=== PATIENT | male | born 1940 | race African-American/Black ===

== ENCOUNTER 2016-06-23 15:07 | Inpatient (IN) | payer MEDICARE, OTHER ==
[~2016-06-23] VITALS: Ht 193 cm; Wt 120.6 kg
[2016-06-23 19:10] VITALS: PULSE 68
--- NOTE | 2016-06-23 19:10 | NUR ---
Admission This is 76 yo male arrived on unit via w/c. Admitted to [facility] from [facility] accompanied by facility transport and [facility] staff. Pt is stand by assist, a/o to person only. Pt with flat affect but animated in speech. Pt visited with staff and other male pt, interacting appropriately. Hygiene appeared appropriate, see assessment for skin conditions. Pt dressed appropriately in hospital gown and scrub pants. Valuables locked in the nurses station. Pt stated "[facility] Per facility pt was out wandering, confused and not safe to discharge home at this time. Pt oriented to unit.
[2016-06-23] MEDS ORDERED: ASPI-1085 PO (19:43)
[2016-06-23] MEDS ORDERED: LEVO175T4 PO (19:43)
[2016-06-23] MEDS ORDERED: OMEP20TA2 PO (19:43)
[2016-06-23] MEDS ORDERED: MEMA10TA12 PO (19:43)
[2016-06-23] MEDS ORDERED: LISI40TA4 PO (19:43)
[2016-06-23] MEDS ORDERED: SPIR25TA4 PO (19:43)
[2016-06-23] MEDS ORDERED: METO-277 PO (19:43)
[2016-06-23] MEDS ORDERED: LORAZEPAM 0.5 MG TABLET PO PRN (19:45)
[2016-06-23] MEDS ORDERED: PRN ORDERS MC (19:45)
[2016-06-23] MEDS ORDERED: HALOPERIDOL 1 MG/0.5 ML ORAL LIQUID PO PRN (19:45)
[2016-06-23] MEDS ORDERED: HALOPERIDOL 5 MG/ML INJECTION IM PRN (19:45)
[2016-06-23] MEDS ORDERED: HALOPERIDOL 0.5 MG TABLET PO PRN (19:45)
[2016-06-23] MEDS ORDERED: LORAZEPAM INTENSOL 1mg/0.5ml ORAL SOLUTION SL PRN (19:45)
[2016-06-23] MEDS ORDERED: LORAZEPAM 2 MG/ML INJECTION IM PRN (19:45)
[2016-06-23] MEDS: MEMANTINE 10 MG TABLET PO SCH (20:41)
[2016-06-23 21:19] LABS: HEMOGLOBIN A1C 5.4 % (6.1-7.9)
[2016-06-23 21:45] LABS: THYROID STIM HORMONE-TSH 12.8 MIU/L (0.47-4.68)
[2016-06-23 21:57] LABS: PREALBUMIN 22.7 MG/DL (17.6-36.0)
[2016-06-23 22:40] VITALS: BP 165/93; PULSE 51; RESP 14; TEMP 96; O2SAT 93
[2016-06-23 22:59] VITALS: Ht 193 cm; Wt 120.6 kg
[2016-06-24 03:18] LABS: FOLATE 8.6 NG/ML (2.76-20)
--- NOTE | 2016-06-24 05:21 | NUR ---
Summary patient arrived on shift, was pleasant and cooperative with assessment. Patient is alert and oriented to person only. Passive with cares, takes medications whole. Patient is on regular diet, though does have some trouble with tearing his food due to missing teeth. Patient does not have dentures or partials. Once on the unit patient interacted with staff and other patients while watching the [employer] game on tv. Once the game was over staff helped pt to get ready for bed. Patient was continent at that time. Patient laid in bed fro 30 min before falling asleep at 2315. Since going to bed patient has been up twice to use the restroom. Each time patient woke, patient was reoriented to unit and to room. Patient was continent and incontinent of urine during the night. Patient was cooperative with allowing staff to change brief. Once back in bed patient quickly fell back to sleep. Patient continues to be asleep in bed at this time with the bed alarm on, rails upx2, and call light is in reach.
[2016-06-24 08:50] VITALS: BP 149/99; PULSE 54; RESP 16; TEMP 96.4; O2SAT 98
[2016-06-24] MEDS: MEMANTINE 10 MG TABLET PO SCH ×2 (08:57→21:00)
[2016-06-24] MEDS: ASPIRIN *EC* 81mg TABLET PO SCH (08:57)
[2016-06-24] MEDS: LEVOTHYROXINE 175 MCG TABLET PO SCH (08:57)
[2016-06-24] MEDS: OMEPRAZOLE 20 MG CAPSULE PO SCH (08:57)
--- NOTE | 2016-06-24 08:57 | HPPDOC ---
MADISON GÓMEZ V OR ASSISTANT 06/24/16 0846: HPI - Adult Date DATE: 06/24/16 TIME: 08:43 General Chief Complaint: Dementia with behaviors History of Present Illness Patient is a 76-year-old male with a known history of dementia. He currently resides in [place], [place]. He was seen by neighbors wandering the neighborhood due to the concern for safety. The Police Department were contacted. He was unable to explain to law enforcement where he resides. Patient was then taken to [facility] emergency room for further evaluation. He was medically evaluated and cleared, however, it was recommended that patient have inpatient psychiatric evaluation and treatment. He was then accepted to the generations unit at [facility] for further evaluation and treatment. Heather was seen this morning upon waking. He is sitting on the edge of the bed, alert and pleasant. He states this is a "nice facility". He denies having any pain or feeling short of breath. He does have significant large keloids to his shoulders and back. He complains of chronic itching and dry skin to these areas. It is noted to have several areas on the keloid base that are open. Past Medical History Past Medical History Dimension Hypertension GERD congestive heart failure Coronary artery disease History of prostate cancer Keloids Hypothyroidism Former tobacco dependence Surgical History Patient's Surgical History: Prostatectomy-2001. Lipoma excision Thyroid ablation-2012 Current Medications Home Meds Reported Medications Levothyroxine Sodium (Synthroid) 175 Mcg Tablet, 175 MCG PO ACB, TAB BEST IF TAKEN BEFORE BREAKFAST 06/23/16 Spironolactone (Spironolactone) 25 Mg Tablet, 25 MG PO DAILY Y for HYPERTENSION , TAB 06/23/16 Omeprazole Magnesium (Prilosec Otc) 20 Mg Tablet.dr, 20 MG PO DAILY, TAB 06/23/16 Memantine HCl (Namenda) 10 Mg Tablet, 10 MG PO BID, TAB Take 1 tablet,by mouth, 2 times a day. 06/23/16 Metoprolol Succinate (Metoprolol Succinate) 50 Mg Tab.er.24h, 50 MG PO DAILY, TAB 06/23/16 Lisinopril (Lisinopril) 40 Mg Tablet, 40 MG PO DAILY for HYPERTENSION, TAB 06/23/16 Aspirin *EC* (Aspirin EC) 81 Mg Tablet.dr, 81 MG PO DAILY, TAB DO NOT CHEW, CRUSH OR BREAK TABLET 06/23/16 Allergies: Coded Allergies: No Known Allergies (Unverified , 06/23/16) Family History Family History: Father-CVA, hypertension Mother-hypertension, stomach cancer Social History Smoking Status: Former smoker Substance Use Type: does not use Substance last used: prior to arrival Alcohol Intake: none Marital Status: Single Housing: house Advance Directives: Yes DPOA for Healthcare Only (Juventino Segura- Son (DPOA)) Social History Comments Currently resides independently in [place], [place]. PCP Dr Philipp Del Rosario Review of Systems Integumentary Skin: itching (Keloids), see HPI All Other Systems All Other Systems: Reviewed (remainder of 10-point ROS Neg.) Physical Exam General General Nourishment: well nourished, well developed Vital Signs Vital Signs Date Time Temp Pulse Resp B/P Pulse Ox O2 Delivery O2 Flow Rate FiO2 06/23/16 22:40 96.0 51 14 165/93 93 Room Air Height (Feet): 6 Height (Inches): 4.00 Eyes Brief: FOUND: EOMI, PERRL ENMT Brief: FOUND: mucosa moist, normal dentition, NOT FOUND: pharnyx erythema Respiratory Brief: FOUND: clear all bhakta, equal bilaterally, NOT FOUND: wheezes Cardiovascular (brief) Cardiac Brief: FOUND: regular rate, regular rhythm, NOT FOUND: murmur, pedal edema Abdomen (brief) Abdominal Brief: FOUND: BS normo active x4, soft, NOT FOUND: distended, tender Integumentary (brief) Integumentary Brief: FOUND: dry, pink, warm Comments Large keloids to back and shoulders. Multiple areas of open skin on keloids Neurologic (brief) Neurological Brief: FOUND: cranial 2-12 intact, motor (equal motor strength 4 extremities) Neurologic RN Documented GCS Eye Opening: Verbal: Motor: Total: Psychiatric (brief) FOUND: alert, attentive, normal affect Laboratory Laboratory Tests Test 06/23/16 20:49 Hemoglobin A1c 5.4% Prealbumin 22.7MG/DL Vitamin B12 Level 193PG/ML Folate 8.6NG/ML Thyroid Stimulating Hormone (TSH) 12.80MIU/L Assessment & Plan Problems: (1) Dementia with behavioral disturbance Status: Acute (2) Keloid of skin Status: Chronic (3) Coronary artery disease Status: Chronic (4) Hypertension Status: Chronic (5) Congestive heart failure Status: Chronic (6) Hypothyroidism Status: Chronic (7) GERD (gastroesophageal reflux disease) Status: Chronic (8) History of prostate cancer Status: Resolved Plan/Intensity of Service Agree with admission to [facility] unit for further psychiatric evaluation and treatment. In regards to chronic keloids, recommend using aggressive lotion to help with dry skin/itching. Will order a Neosporin/bacitracin to use twice a day to open areas. Keep any open areas covered with dressing and change daily. Monitor for evidence of skin infection Monitor blood pressure and continue on lisinopril 40, metoprolol 50mg daily Encourage patient to participate in unit activity and provide a safe environment Appreciate medical consultation. The hospitalist services will continue to follow patient medically manage [facility] stay. During his hospitalization on [facility] unit. At time of discharge his medical care will return to his primary care provider in [place], [place], Dr. Philipp Del Rosario Code Status Full Code, unverified Hospital Course Summary Disclaimer The hospital course summary below is not to be considered part of the above Progress Note. Hospital Course Summary 06/24 Agree with admission to [facility] unit for further psychiatric evaluation and treatment. In regards to chronic keloids, recommend using aggressive lotion to help with dry skin/itching. Will order a Neosporin/bacitracin to use twice a day to open areas. Keep any open areas covered with dressing and change daily. Monitor for evidence of skin infection Monitor blood pressure and continue on lisinopril 40, metoprolol 50mg daily Encourage patient to participate in unit activity and provide a safe environment Appreciate medical consultation. The hospitalist services will continue to follow patient medically manage [facility] stay. During his hospitalization on [facility] unit. At time of discharge his medical care will return to his primary care provider in [place], [place], SAHARA Cuevas MD 06/24/161950: Past Medical History Current Medications Home Meds Reported Medications Levothyroxine Sodium (Synthroid) 175 Mcg Tablet, 175 MCG PO ACB, TAB BEST IF TAKEN BEFORE BREAKFAST 06/23/16 Spironolactone (Spironolactone) 25 Mg Tablet, 25 MG PO DAILY Y for HYPERTENSION , TAB 06/23/16 Omeprazole Magnesium (Prilosec Otc) 20 Mg Tablet.dr 20 MG PO DAILY, TAB 06/23/16 Memantine HCl (Namenda) 10 Mg Tablet, 10 MG PO BID, TAB Take 1 tablet,by mouth, 2 times a day. 06/23/16 Metoprolol Succinate (Metoprolol Succinate) 50 Mg Tab.er.24h, 50 MG PO DAILY, TAB 06/23/16 Lisinopril (Lisinopril) 40 Mg Tablet, 40 MG PO DAILY for HYPERTENSION, TAB 06/23/16 Aspirin *EC* (Aspirin EC) 81 Mg Tablet.dr, 81 MG PO DAILY, TAB DO NOT CHEW, CRUSH OR BREAK TABLET 06/23/16 Allergies: Coded Allergies: No Known Allergies (Unverified , 06/23/16) Assessment & Plan Assessment Seen and examined today. Agree with history physical exam assessment and plan of nurse practitioner Madison Gómez. Will follow along with patient stay in hospital MADISON GÓMEZ APRN June 24, 2016 08:46 SAHARA PENN MD June 24, 2016 19:51
[2016-06-24] MEDS: LISINOPRIL 40 MG TABLET PO SCH (08:58)
[2016-06-24] MEDS: METOPROLOL XL 50 MG TABLET PO SCH (08:58)
[2016-06-24] MEDS: BACITRACIN TOPICAL OINTMENT 15 G TUBE TOP SCH ×2 (10:08→21:00)
--- NOTE | 2016-06-24 12:30 | NUR ---
SILVER SOLDERER -- PSH/ADV DIR/TX PLAN REVIEW SW spoke with pt's son, Juventino Segura (DPOA-HC) on the phone. Juventino states he is coming to visit pt next week on Mon and he will take pt back with him to [place] to live. Juventino knows that the pt has had an increase in symptoms of his dementia since February. Juventino states he came in March to take him back to [place] but pt refused. Juventino wants the doctor to write something to be able to show the pt that he is unable to live by himself so that Juventino can remind him. SW educated on the disease and that it may get worse and son may not be prepared. Education will be provided to son at the time he visits so he can understand the disease progression better. Juventino states that the pt was in the [facility] [employer] [employer] for 20 years and served in the [place]. He was a hard worker and when he retired from the he went into the [employer] for another 20 years. At that time, Juventino states that he retired from the [employer]. Juventino thinks the pt was dx'd a few years ago with dementia but it has increasing become worse since Feb. He states he went to his dads home in March and it was very dirty and had a distinct smell of urine. He is active in a [employer] in [place] and the lawyer and his have been watching out for the pt as much as they can. In February, the pt began home health services, but they are not able to adequately take care of him at this point. He was found wandering in the community by a bystander. Once he went to the hospital, he remained confused and disoriented. He was resistive to care in the hospital and continued to exit seek with confusion. Son agreed to tx plan developed and would like pt to be a DNR. He agreed via phone to have the sign a DNR order for him. Pt has active DPOA-HC and Living Will which is his son, Juventino.
--- NOTE | 2016-06-24 12:45 | NUR ---
BEER COOLER--AM GROUP SW provided educational group for memory cognition of events in the participants lives. Card game used to jog memory and enact positive recall. After education component complete, music therapy used for memory recall as well. SW would provide a piece of music specific to each person and ask them to recall the name of the group/artist or the song or asked the pt to name a song to be played. Pt was able to accurately provide answers to the card game. Pt did become sleepy and dozed about [address] the group. However pt was smiling and enjoyed the music played. He was not able to name specific groups or songs, but if a song was played that he liked, he would sing the words and tap his foot.
[2016-06-24 16:12] VITALS: BP 133/91; PULSE 58; RESP 18; TEMP 97; O2SAT 97
--- NOTE | 2016-06-24 16:22 | NUR ---
FABRICATION MANAGER--PM GROUP Pt. was present and actively engaged in psychoeducational group facilitated by [facility]. Pt. was alert, Ox1, calm with pleasant mood. He is wearing a "[place]" hat and his services was recognized by staff and other peers. The topic was reminiscing about importance of Memorial Day. Pt. attempts to talk about his experience but it does not make much sense. Played [employer] and pt. joined in answering some of the questions. Finished up group by listening to music hymns. Pt. appeared more relaxed with slightly improved mood by end of group.
[2016-06-24 16:37] VITALS: PULSE 56; RESP 16; O2SAT 98
--- NOTE | 2016-06-24 17:36 | GENHPPDOC ---
Generations HPI 06/24/16 Time of Service: 17:30 Start Time: 17:30 Stop Time: 18:00 >50% of this visit spent in counseling/coordination care. Chief Complaint: "I dont know why I am here History of Present Illness HPI: 76 y/o AA male with a hx of dementia sent from [place] for increasing confusion. Pt was found by police wandering in the neighbor and was not able to tell them where he lives. On face to face the pt is pleasant and cooperative but confused. He is only oriented to self and is not able to tell a good hx. He talks about the gas line in the building and it needing to be fixed. He denies any pain and states his mood is stable. Denies any S/i or psychosis. PSYCH ROS: Pt is very confused and so psychiatric symptoms are hard to obtain. He scored a 3 on his SLUMS. He does not appear to be in any distress. PAST PSYCH: Pt is on Namenda. No other psych hx is available at this time. Past Medical History Past Medical History Dimension Hypertension GERD congestive heart failure Coronary artery disease History of prostate cancer Keloids Hypothyroidism Former tobacco dependence Surgical History Patient's Surgical History: Prostatectomy-2001. Lipoma excision Thyroid ablation-2012 Current Medications Home Meds Reported Medications Levothyroxine Sodium (Synthroid) 175 Mcg Tablet, 175 MCG PO ACB, TAB BEST IF TAKEN BEFORE BREAKFAST 06/23/16 Spironolactone (Spironolactone) 25 Mg Tablet, 25 MG PO DAILY Y for HYPERTENSION , TAB 06/23/16 Omeprazole Magnesium (Prilosec Otc) 20 Mg Tablet.dr, 20 MG PO DAILY, TAB 06/23/16 Memantine HCl (Namenda) 10 Mg Tablet, 10 MG PO BID, TAB Take 1 tablet,by mouth, 2 times a day. 06/23/16 Metoprolol Succinate (Metoprolol Succinate) 50 Mg Tab.er.24h, 50 MG PO DAILY, TAB 06/23/16 Lisinopril (Lisinopril) 40 Mg Tablet, 40 MG PO DAILY for HYPERTENSION, TAB 06/23/16 Aspirin *EC* (Aspirin EC) 81 Mg Tablet.dr, 81 MG PO DAILY, TAB DO NOT CHEW, CRUSH OR BREAK TABLET 06/23/16 Allergies: Coded Allergies: No Known Allergies (Unverified , 06/23/16) Family History Family History: Father-CVA, hypertension Mother-hypertension, stomach cancer Vaccines 09/2010 Social History Smoking Status: Former smoker Substance Use Type: does not use Substance last used: prior to arrival Alcohol Intake: none Marital Status: Single Housing: house Advance Directives: Yes DPOA for Healthcare Only (Juventino Segura- Son (DPOA)) Review of Systems Unable to Obtain ROS Due to: clinical condition Generations Exam Vitals Vital Signs Date Time Temp Pulse Resp B/P Pulse Ox O2 Delivery O2 Flow Rate FiO2 06/24/16 16:37 56 16 98 Room Air 06/24/16 16:12 97.0 133/91 Physical examination performed by the hospitalist. Height (Feet): 6 Height (Inches): 4.00 Mental Status Exam Muscle Strength/Tone: Normal Dressing: Casual Grooming: Good Attitude: Cooperative Motor Activity: Normal Eye Contact: Good Speech: Slowed Volume: Soft Rhythm: Appropriate Rhythm Sensory: Alert Orientation: Oriented to person Mood: Euthymic Affect: Congruent Rate of Thoughts: Delayed Thought Organization: [place] Associations: Illogical Abstract Reasoning: Impaired, concrete Thought Content: Normal Perception/Psychotic: Hx psychosis,not current Attention Span/Concentration: Distractable Fund of Knowledge: Poor fund of knowledge Memory: Poor-immediate, Poor-recent Suicidal Ideation: None Homicidal Ideation: None Insight: Poor Judgment: Poor Impulse Control: Poor Laboratory Tests Test 06/23/16 20:49 Hemoglobin A1c 5.4% Prealbumin 22.7MG/DL Triglycerides Level Pending Cholesterol Level Pending LDL Cholesterol, Calculated Pending VLDL Cholesterol Pending HDL Cholesterol Direct Pending Cholesterol/HDL Ratio Pending Vitamin B12 Level 193PG/ML Folate 8.6NG/ML Thyroid Stimulating Hormone (TSH) 12.80MIU/L Rapid Plasma Reagin Pending Assessment and Plan (1) Major neurocognitive disorder due to Alzheimer's disease, probable, with behavioral disturbance Assessment: 06/24?17 Will continue to monitor. Dementia work up and medical team to follow (2) Hypertension (3) GERD (gastroesophageal reflux disease) (4) Hypothyroidism (5) Congestive heart failure (6) Coronary artery disease Cont. current psych. meds AURA QUIÑONEZ MD June 24, 2016 17:33
--- NOTE | 2016-06-24 20:01 | NUR ---
Shift Summary Patient is up at 0800; cooperative and pleasant, oriented to person and time. He is appropriate in his interactions with others, is able to make his needs known. He ambulates well with supervision from staff, eats more than 50% of meals and takes medications without argument or incident. He has been out in the day room all shift watching TV or participating in group/activities (see prev notes from [facility]). Following supper this county got placed under a [place] Warning in which all patients and staff moved to a group home area. Staff and patients engaged in trivia and word puzzles. Patient laughed when asked direction questions and talked about something not related to the subject matter. Presently he is back in the day room watching TV
[2016-06-24 20:40] VITALS: BP 157/93; PULSE 50; RESP 16; TEMP 97.4; O2SAT 98
--- NOTE | 2016-06-25 00:09 | NUR ---
Status Assumed patient care at 1954 and assessment completed at 2039. Patient is sitting in dining room at time of assessment; he divides his attention between watching out the window and a ball-game on television. Speech is mumbled and conversation is disjointed with noted word-searching. He mentions "bugs" on his back and shoulders - skin condition and treatment explained to patient; he does not appear to understand and continues to refer to "bugs." Cooperative/pleasant with staff - allows assessment and follows simple commands. VS are stable with noted bradycardia. Denies pain/discomfort or dizziness/light-headedness. Ambulates with a slow/steady gait - slightly unsteady when initially arising from a sitting position. Readily compliant with medications. Needs significant cueing for direction and to complete activities; at times, he seems unable to comprehend these cues. He allows staff to assist as needed. Refuses to change from his jeans to pajama pants at . He reports a "good" appetite. No restless/wandering behavior or anxiety is noted.
--- NOTE | 2016-06-25 00:37 | NUR ---
Bedtime Patient was in bed by 2300 and asleep by midnight. He was awake all of day shift.
--- NOTE | 2016-06-25 01:12 | NUR ---
Chart Check 24 hour chart check completed
[2016-06-25] MEDS: LEVOTHYROXINE 175 MCG TABLET PO SCH (06:07)
[2016-06-25] MEDS: OMEPRAZOLE 20 MG CAPSULE PO SCH (06:07)
--- NOTE | 2016-06-25 06:36 | NUR ---
Summary Patient is oriented to self only - he is cooperative/pleasant with staff but with seemingly poor comprehension at times of staff cues/directions. Readily compliant with medications. No restless or wandering behavior is noted. He is accepting of staff assistance with cares. Sets off bed alarm x2 overnight, in getting up to void. Resting quietly at the current time. Bed alarm is on and side rails are up x2.
[2016-06-25 08:00] VITALS: BP 147/77; PULSE 50; RESP 16; TEMP 97.1; O2SAT 94
[2016-06-25] MEDS: LISINOPRIL 40 MG TABLET PO SCH (08:11)
[2016-06-25] MEDS: ASPIRIN *EC* 81mg TABLET PO SCH (08:11)
[2016-06-25] MEDS: MEMANTINE 10 MG TABLET PO SCH ×2 (08:11→20:09)
[2016-06-25] MEDS: METOPROLOL XL 50 MG TABLET PO SCH (08:11)
[2016-06-25] MEDS: BACITRACIN TOPICAL OINTMENT 15 G TUBE TOP SCH ×2 (08:12→20:10)
--- NOTE | 2016-06-25 11:31 | GENPN ---
Generations Subjective Date DATE: 06/25/16 TIME: 11:29 Subjective/Severity of Illness Medications Current Medications Medications (Trade) Dose Ordered Sig/Qing Start Time Stop Time Status Last Admin Dose Admin Miscellaneous Medication (May use PRN orders) 1 PRN PRN 06/23/16 19:45 Haloperidol (Haldol) 0.5 mg Q6H PRN 06/23/16 19:45 Lorazepam (Ativan) 0.5 mg Q6H PRN 06/23/16 19:45 Lorazepam (Ativan) 0.5 mg Q6H PRN 06/23/16 19:45 Haloperidol Lactate (Haldol 5 Mg/ml Inj) 0.5 mg Q6H PRN 06/23/16 19:45 Lorazepam (Ativan Intensol) 0.5 mg Q6H PRN 06/23/16 19:45 Haloperidol (Haldol Liquid) 0.5 mg Q6H PRN 06/23/16 19:45 Aspirin (Ecotrin) 81 mg DAILY 06/24/16 09:00 06/25/16 08:11 81 MG Levothyroxine Sodium (Synthroid) 175 mcg ACB 06/24/16 06:30 06/25/16 06:07 175 MCG Lisinopril (Prinivil) 40 mg DAILY 06/24/16 09:00 06/25/16 08:11 40 MG Memantine (Namenda) 10 mg BID 06/23/16 21:00 06/25/16 08:11 10 MG Metoprolol Succinate (TOPROL XL 50 mg) 50 mg DAILY 06/24/16 09:00 06/25/16 08:11 50 MG Omeprazole (Prilosec) 20 mg ACB 06/24/16 07:30 06/25/16 06:07 20 MG Bacitracin (Bacitracin) 1 applic BID 06/24/16 09:00 06/25/16 08:12 1 APPLIC Subjective Pt seen and chart examined. Nursing reports pt is doing well on the unit. Sleeping well and has a good appetite. No behaviors noted. On face to face the pt is pleasant but confused. He is only oriented to self. He is resting quietly in bed. Denies pain and voices no concerns at this time Time of Service: 10:15 Start Time: 10:15 Stop Time: 10:30 Care >50% of this visit spent in counseling/coordination care. Generations Exam Vitals Vital Signs Date Time Temp Pulse Resp B/P Pulse Ox O2 Delivery O2 Flow Rate FiO2 06/25/16 08:00 97.1 50 16 147/77 94 Room Air Physical examination performed by the hospitalist. Height (Feet): 6 Height (Inches): 4.00 Mental Status Exam Muscle Strength/Tone: Normal Dressing: Casual Grooming: Good Attitude: Cooperative Motor Activity: Retardation Eye Contact: Good Speech: Slowed Volume: Soft Rhythm: Appropriate Rhythm Sensory: Alert Orientation: Oriented to person Mood: Neutral Affect: Congruent Rate of Thoughts: Delayed Thought Organization: Disorganized Associations: Illogical Abstract Reasoning: Impaired, concrete Thought Content: Normal Perception/Psychotic: Hx psychosis,not current Attention Span/Concentration: Short Span Fund of Knowledge: Poor fund of knowledge Memory: Poor-immediate, Poor-recent Suicidal Ideation: None Homicidal Ideation: None Insight: Poor Judgment: Poor Impulse Control: Fair Assessment and Plan (1) Major neurocognitive disorder due to Alzheimer's disease, probable, with behavioral disturbance Assessment: 06/24/16 Will continue to monitor. Dementia work up and medical team to follow 06/25/16 Continue current care (2) Hypertension (3) GERD (gastroesophageal reflux disease) (4) Hypothyroidism (5) Congestive heart failure (6) Coronary artery disease Cont. current psych. meds AURA QUIÑONEZ MD June 25, 2016 11:31
--- NOTE | 2016-06-25 13:03 | NUR ---
Status/ sleep 7.25 hrs Pt awake at 0800, pt cooperative with cares and assessment this morning. Pt doesn't like female staff to be in room while he is getting dressed or undressed. Staff stood at the door to give pt some privacy. Pt ate 100% of breakfast and lunch. Took meds this morning without difficulty. Pt's dressings to back changed. No behaviors noted. Pt able to make needs known. Pt is in bed resting at this time.
[2016-06-25 16:50] VITALS: BP 136/81; PULSE 50; RESP 16; TEMP 98.2; O2SAT 95
--- NOTE | 2016-06-25 18:33 | NUR ---
Shift summary Pt did refuse to take shower this afternoon, after stating this morning he wanted to take this afternoon. Pt has walked in halls for exercise. Pt ate 100% of meals today. Pt took and hour nap this morning has been up the rest of the shift. Pt behaviors noted, no prns given this shift.
--- NOTE | 2016-06-25 19:01 | NUR ---
DNR Dr Hunt signed DNR paperwork.
[2016-06-25 19:30] VITALS: BP 151/94; PULSE 61; RESP 16; TEMP 97.2; O2SAT 98
--- NOTE | 2016-06-25 23:29 | NUR ---
Status Assumed patient care at 1915 and assessment completed at 1930. Patient is in room at time of assessment and is pleasantly confused - oriented to self only. He smiles readily and jokes with staff (albeit nonsensical). VS are stable. He denies pain/discomfort or itching to back (no comments of "bugs" on his back and shoulders as he was referring to the previous evening). He is readily compliant with medications and shower/HS cares. He assists with cares although some cueing is needed for him to complete activities. He allows (and often looks to) staff to assist with cares/provide cueing as needed. Following his shower, he states several times, "That felt good." He does think that a picture hanging in his room is a television and that it only gets one channel. Orientation provided although comprehension appears minimal. His speech is mumbled and thought process is disoriented; word-searching is noted then abandoned in lieu of an nonsensical comment. Tolerates dressing change well; no drainage to open areas is noted. Ambulates with a mostly steady gait and stand-by to x1 assist is provided. No restless or wandering behavior is noted; he stays in his room this shift.
--- NOTE | 2016-06-26 00:02 | NUR ---
Bedtime Patient was in bed at 2044 and was asleep by 2229. He slept 1 hour on day shift.
--- NOTE | 2016-06-26 00:55 | NUR ---
Chart Check 24 hour chart check completed
[2016-06-26] MEDS: LEVOTHYROXINE 175 MCG TABLET PO SCH (05:44)
[2016-06-26] MEDS: OMEPRAZOLE 20 MG CAPSULE PO SCH (05:44)
--- NOTE | 2016-06-26 06:16 | NUR ---
Summary Patient has been oriented to person only this shift. He remains in a pleasant/happy mood, responding in a positive manner to staff cues and assistance with cares. Readily compliant with medications. No wandering or restless behavior is noted. He sets off bed alarm x2 overnight in getting up to toilet. Remains without complaints and is resting quietly at the current time.
[2016-06-26 08:00] VITALS: BP 133/89; PULSE 58; RESP 16; TEMP 96
[2016-06-26] MEDS: METOPROLOL XL 50 MG TABLET PO SCH ×2 (09:00→09:57)
--- NOTE | 2016-06-26 09:16 | GENPN ---
[facility] Subjective Date DATE: 06/26/16 TIME: 09:14 Subjective/Severity of Illness Medications Current Medications Medications (Trade) Dose Ordered Sig/Qing Start Time Stop Time Status Last Admin Dose Admin Miscellaneous Medication (May use PRN orders) 1 PRN PRN 06/23/16 19:45 Haloperidol (Haldol) 0.5 mg Q6H PRN 06/23/16 19:45 Lorazepam (Ativan) 0.5 mg Q6H PRN 06/23/16 19:45 Lorazepam (Ativan) 0.5 mg Q6H PRN 06/23/16 19:45 Haloperidol Lactate (Haldol 5 Mg/ml Inj) 0.5 mg Q6H PRN 06/23/16 19:45 Lorazepam (Ativan Intensol) 0.5 mg Q6H PRN 06/23/16 19:45 Haloperidol (Haldol Liquid) 0.5 mg Q6H PRN 06/23/16 19:45 Aspirin (Ecotrin) 81 mg DAILY 06/24/16 09:00 06/25/16 08:11 81 MG Levothyroxine Sodium (Synthroid) 175 mcg ACB 06/24/16 06:30 06/26/16 05:44 175 MCG Lisinopril (Prinivil) 40 mg DAILY 06/24/16 09:00 06/25/16 08:11 40 MG Memantine (Namenda) 10 mg BID 06/23/16 21:00 06/25/16 20:09 10 MG Metoprolol Succinate (TOPROL XL 50 mg) 50 mg DAILY 06/24/16 09:00 06/25/16 08:11 50 MG Omeprazole (Prilosec) 20 mg ACB 06/24/16 07:30 06/26/16 05:44 20 MG Bacitracin (Bacitracin) 1 applic BID 06/24/16 09:00 06/25/16 20:10 1 APPLIC Subjective Pt seen and chart examined. Nursing reports pt is doing well on the unit. Sleeping well and has a good appetite. No behaviors noted. Nursing reports pt is confused and needs alot of cuing for cares. On face to face the pt is resting quietly in bed. He states he is doing well and voices no concerns. He is only oriented to self. Denies pain Time of Service: 08:15 Start Time: 08:15 Stop Time: 08:30 Care >50% of this visit spent in counseling/coordination care. [facility] Exam Vitals Vital Signs Date Time Temp Pulse Resp B/P Pulse Ox O2 Delivery O2 Flow Rate FiO2 06/25/16 19:30 97.2 61 16 151/94 98 Room Air Physical examination performed by the hospitalist. Height (Feet): 6 Height (Inches): 4.00 Mental Status Exam Muscle Strength/Tone: Normal Dressing: Casual Grooming: Good Attitude: Cooperative Motor Activity: Retardation Eye Contact: Fair Speech: Slowed Volume: Soft Rhythm: Slurred Sensory: Alert Orientation: Oriented to person Mood: Neutral Affect: Congruent Rate of Thoughts: Delayed Thought Organization: Morgan Associations: Illogical Abstract Reasoning: Impaired, concrete Thought Content: Normal Perception/Psychotic: Perception Normal Attention Span/Concentration: Short Span Fund of Knowledge: Poor fund of knowledge Memory: Poor-immediate, Poor-recent Suicidal Ideation: None Homicidal Ideation: None Insight: Poor Judgment: Poor Impulse Control: Fair Assessment and Plan (1) Major neurocognitive disorder due to Alzheimer's disease, probable, with behavioral disturbance Assessment: 06/24/16 Will continue to monitor. Dementia work up and medical team to follow 06/25/16 Continue current care 06/26/16 Continue current care (2) Hypertension (3) GERD (gastroesophageal reflux disease) (4) Hypothyroidism (5) Congestive heart failure (6) Coronary artery disease Cont. current psych. meds AURA QUIÑONEZ MD June 26, 2016 09:16
[2016-06-26] MEDS: ASPIRIN *EC* 81mg TABLET PO SCH (09:56)
[2016-06-26] MEDS: LISINOPRIL 40 MG TABLET PO SCH (09:56)
[2016-06-26] MEDS: MEMANTINE 10 MG TABLET PO SCH ×2 (09:56→20:07)
[2016-06-26] MEDS: BACITRACIN TOPICAL OINTMENT 15 G TUBE TOP SCH ×2 (09:57→20:09)
--- NOTE | 2016-06-26 12:27 | NUR ---
SLEEP NOTE PATIENT WOKE UP AT 0930, SLEPT A TOTAL OF 12 HR LAST NIGHT
--- NOTE | 2016-06-26 12:33 | NUR ---
STATUS patient has been pleasant, cooperative with cares, compliant with medications, pleasant mood, polite to staff, denies pain, compliant of being itchy on his back, lotion applied, Bacitracin creme applied to keloids, dressing changed. Patient denies needs or concerns at the moment.
[2016-06-26 16:16] VITALS: BP 184/102; PULSE 50; RESP 16; TEMP 96.8; O2SAT 97
--- NOTE | 2016-06-26 18:25 | NUR ---
SHIFT SUMMARY Patient is AO x 1, he has been pleasant, cooperative with cares, compliant with medications, he has been polite to staff, allows staff to help him, he forgets what room he is on but will ask staff for help, he is steady, he needs cueing with ADL's. Patient denies any pain, no PRN medications given, no hallucinations noted, he has been eating most of his meals, this evening patient wanted to go into the group room instead of the day room to watch TV. No aggressive behaviors noted. Dressings on his back were changed today, he states his back is itchy, lotion was applied, patient states it felt better after lotion applied. Patient denies needs or concern at the moment.
[2016-06-26 19:28] VITALS: BP 176/96; PULSE 62; RESP 18; TEMP 96.4; O2SAT 97
[2016-06-26] MEDS ORDERED: SPIRONOLACTONE 25 MG TABLET PO ONE (20:00)
--- NOTE | 2016-06-26 23:02 | NUR ---
Status Pt sitting in the dining room at start of shift, watching baseball game. Pt cooperative with VS, assessment and medications. Pt is up with SBA and steady gait. He visited with staff off and on but mostly stayed to himself. When pt was ready for bed he was cooperative with cares. Pt in bed at 2200 and asleep by 2215. Bed in low position, locked, SR up x 2,call light in reach, bed alarm is on and functioning. Will continue to monitor.
--- NOTE | 2016-06-27 00:15 | NUR ---
Chart Check 24 hour chart check completed
[2016-06-27] MEDS: OMEPRAZOLE 20 MG CAPSULE PO SCH (05:49)
[2016-06-27] MEDS: LEVOTHYROXINE 175 MCG TABLET PO SCH (05:50)
--- NOTE | 2016-06-27 06:16 | NUR ---
Summary/sleep Pt was in bed at 2200 and asleep from [id number]. At this time pt used the BR. He was back to sleep by 0515 and is currently asleep. Pt has slept a total of 7 hr and 30 minutes. Pt has had no c/o pain, he has been cooperative with cares and taking medication. Pt had no exit seeking, restless or wandering behaviors this shift. Pt also allowed staff to assist him with cares when needed. Bed is in low position, locked, SR up x 2, call light in reach but pt does not use, bed alarm is on and functioning. Will continue to monitor.
[2016-06-27 08:00] VITALS: BP 152/90; PULSE 61; RESP 16; TEMP 97.4; O2SAT 99
[2016-06-27] MEDS: LISINOPRIL 40 MG TABLET PO SCH (09:28)
[2016-06-27] MEDS: ASPIRIN *EC* 81mg TABLET PO SCH (09:28)
[2016-06-27] MEDS: METOPROLOL XL 50 MG TABLET PO SCH (09:28)
[2016-06-27] MEDS: MEMANTINE 10 MG TABLET PO SCH ×2 (09:28→19:33)
[2016-06-27] MEDS: BACITRACIN TOPICAL OINTMENT 15 G TUBE TOP SCH (09:29)
--- NOTE | 2016-06-27 10:26 | NUR ---
Status/sleep 9.25 Pt is oriented to self only. Pt does mumble at times. Pt is pleasant and cooperative with cares, pt does need lots of cueing to do ADL's. Pt is very modest and is concerned about privacy staff is aware of this and tries be discreet with cares. Dressings to back changed, new ABD and bandaid applied. Pt ate 100% of breakfast. Pt is now watching the contreras is right on TV.
--- NOTE | 2016-06-27 10:48 | NUR ---
BUS MECHANIC- GROUP Pt. was present and actively participated to the best of his ability in psychoeducational group facilitated by [facility]. Topic was on managing anxiety symptoms. Talked with patients about wide range of interventions that can help to alleviate distress caused by symptoms. Discussed medications, exercise, deep breathing, prayers, and music. Pt. is only Ox1 but he does appear to be listening to the discussion on the topic. He appears relaxed and enjoys the socializing aspect of being with the group. Finished by listening to variety of music.
--- NOTE | 2016-06-27 11:37 | NUR ---
Vaccine Called Dr. Del Rosario office message left for pneumonia vaccine records. Pt did have the pneumonia 23 on 09/2010 unsure if pt has had pneumonia 13.
[2016-06-27] MEDS: SPIRONOLACTONE 25 MG TABLET PO SCH (11:56)
--- NOTE | 2016-06-27 14:10 | NUR ---
Vaccine Dr. Zamorano's nurse did call back and inform this nurse pt has not had the Pneumonia 13, called and left message for pt's son to call the unit to get permission to give pt pneumonia 13 vaccine.
--- NOTE | 2016-06-27 15:21 | NUR ---
CM CM LVM FOR PT JINA LEWIS. CM EXPLAINED ROLE AND PROVIDED CONTACT INFORMATION. CM DID SEE NOTE FROM SOCIAL WORK REGARDING D/C PLAN.
--- NOTE | 2016-06-27 16:02 | NUR ---
WEAVING LOOM OPERATOR--PM GROUP SW used cognitive memory recall during the first part of the psychosocial group. Participants were asked to recall words that related to phrases given. Then music was played for memory. Pt was able to discuss words in relation to phrases given and would sing and hum to music that was played. Pt had a cheery disposition and laughed and smiled throughout the group.
[2016-06-27 16:13] VITALS: BP 163/91; PULSE 62; RESP 16; TEMP 97.4; O2SAT 99
--- NOTE | 2016-06-27 16:31 | PDWOUND ---
Wound Documentation Wound Management Wound : Location Modifier: Posterior Wound Location: Back Wound Type: Other (Keloids) Wound Dressing Frequency: other Wound Duration: > one month Wound Dressing Status: FOUND: Dry & Intact Wound Drainage Amount: Minimal Wound Drainage Description: Serous Wound Drainage Odor: None/Absent Comments Pt has multiple keloids with open areas which pt's state itch. Discussed with Alin ANDERSEN at this time discuss cortosine cream. ZUNILDA RODRIGUEZ RN June 27, 2016 16:31
--- NOTE | 2016-06-27 16:43 | NUR ---
Wound team Laura from wound team came and looked a pt's wounds to back, Laura stated to leave wounds open to air and apply cortisone cream BID. New orders received from Martina Harley.
[2016-06-27 19:20] VITALS: BP 159/94; PULSE 63; RESP 8; TEMP 95.7; O2SAT 96
[2016-06-27] MEDS: HYDROCORTISONE 1% OINT 28 GM TOP SCH (19:34)
[2016-06-27 20:05] VITALS: RESP 18
[2016-06-27 20:11] VITALS: PULSE 63
--- NOTE | 2016-06-27 23:43 | NUR ---
Status Pt. tells staff, "The war is still going on and its not going to end," and pt. is paced the halls once. Pt. is approached as he sat in a recliner and pt. is pleasant, only alert and oriented to self. Pt. mentioned the unit being a nice place several times. Pt. takes his medication whole without difficulty. Pt. takes a shower and allows staff to assist with hygiene cares (washing his back, legs and feet). Pt. needs significant cueing to complete cares. Hydrocortisone cream is applied to wound's on pt's back and left SECURITY SERVICES SPECIALIST. Pt. is resting in bed with the bed alarm activated and SR up x2.
--- NOTE | 2016-06-28 00:01 | NUR ---
Vaccine Authorization Pt. son/DPOA, Juventino Colton, called and gave authorization for pt. to have pneumonia 13 vaccination.
[2016-06-28 03:29] LABS: LDL CHOLESTEROL,CALCULATED 169.2 (66-159); RISK FACTOR 3.9 RATIO (0-5.0); VLDL CHOLESTEROL 17.8 MG/DL (0-28)
--- NOTE | 2016-06-28 05:52 | NUR ---
Summary Arrived on shift, Patient was asleep in bed at 2200. No s/s of pain or discomfort. Patient was up once during the night to use the restroom. Patient was continent of bladder, needs cuing with cares at times. Patient is pleasantly confused, constantly thanking staff and exclaiming what a nice place this is. Once done with hygiene cares patient transitioned back to bed, patient is currently asleep in bed, bed alarm on, and call light is in reach.
[2016-06-28] MEDS: OMEPRAZOLE 20 MG CAPSULE PO SCH (06:31)
[2016-06-28] MEDS: LEVOTHYROXINE 175 MCG TABLET PO SCH (06:31)
[2016-06-28 08:22] VITALS: BP 151/85; PULSE 52; RESP 18; TEMP 97.4; O2SAT 96
[2016-06-28] MEDS: SPIRONOLACTONE 25 MG TABLET PO SCH (08:33)
[2016-06-28] MEDS: MEMANTINE 10 MG TABLET PO SCH ×2 (08:33→19:32)
[2016-06-28] MEDS: LISINOPRIL 40 MG TABLET PO SCH (08:33)
[2016-06-28] MEDS: METOPROLOL XL 50 MG TABLET PO SCH (08:33)
[2016-06-28] MEDS: ASPIRIN *EC* 81mg TABLET PO SCH (08:33)
[2016-06-28] MEDS: HYDROCORTISONE 1% OINT 28 GM TOP SCH ×2 (08:41→19:33)
--- NOTE | 2016-06-28 08:59 | PNPDOC ---
DOLORES CHRISTOPHER 06/28/16 0848: Subjective Date DATE: 06/28/16 TIME: 08:44 Alee Martinez is seen today in follow up for his hypertension and dementia. He is seen while sitting in the day room, preparing for breakfast and denies any complaints. He denies any chest pain, shortness of breath, abdominal pain, nausea, vomiting or diarrhea. He states that his appetite is good and his bowels are moving well. Review of the nursing notes indicates that he has been cooperative with cares and remains pleasantly confused, often needing cuing to complete ADLs. Review of labs from 06/23 revealed A1c 5.4, dyslipidemia with total cholesterol at 251 with elevated LDLs at 169 and low B12 at 193. TSH was also noted to be elevated at 12.80 and he was started on Synthroid. Since admission, blood pressure remains elevated at 151/85 today despite being on lisinopril 40mg, metoprolol 50mg and spironolactone 25mg. Wound care has seen and evaluated the patient with regard to his open back wound and recommended cortisone cream which he has been receiving. Objective Vital Signs Vital signs Vital Signs Date Time Temp Pulse Resp B/P Pulse Ox O2 Delivery O2 Flow Rate FiO2 06/28/16 08:22 97.4 52 18 151/85 96 Room Air Height (Feet): 6 Height (Inches): 4.00 Weight (Kilograms): 119.700 General General Appearance: Alert, Orientated x 1, Confused, Cooperative, No Acute Distress Eyes (Brief) Eyes: FOUND: PERRL, NOT FOUND: scleral icterus ENMT (Brief) ENMT: FOUND: mucosa moist Comments missing teeth Neck (Brief) Neck: FOUND: midline, NOT FOUND: nuchal rigidity, tracheal deviation Respiratory (Brief) Respiratory: FOUND: clear all bhakta, equal bilaterally, symmetrical, NOT FOUND : rales, wheezes Cardiovascular (Brief) Cardiac: FOUND: regular rate, regular rhythm, NOT FOUND: pedal edema Abdomen (Brief) Abdominal: FOUND: BS normo active x4, soft, NOT FOUND: distended, tender Extremities (Brief) Extremity : Side: Bilateral Extremity: leg Extremity Finding: NOT FOUND: deformity, edema Musculoskeletal (Brief) Musculoskeletal: NOT FOUND: deformity, loss of motion Integumentary (Brief) Integumentary: FOUND: dry, warm Neurologic (Brief) Neurological: NOT FOUND: facial droop Psychiatric (Brief) Psychiatric: FOUND: alert, attentive, oriented (x1) Comments pleasant Assessment & Plan Problems: (1) Dementia with behavioral disturbance Status: Acute (2) Keloid of skin Status: Chronic (3) Coronary artery disease Status: Chronic (4) Hypertension Status: Chronic (5) Congestive heart failure Status: Chronic (6) Hypothyroidism Status: Chronic (7) GERD (gastroesophageal reflux disease) Status: Chronic (8) History of prostate cancer Status: Resolved Plan/Intensity of Service 06/28/16: [place]. Overall, Juan appears to be doing well and is medically stable. Continue psychiatric care per Dr. Villanueva and team. Continue to provide safe and supportive environment, encouraging patient participation in floor activities. In regards to chronic keloids, patient has been seen and evaluated by wound care team who recommended cortisone cream to areas while keeping open. Continue cortisone and appreciate wound care team's time and expertise.Monitor closely for evidence of skin infection including redness, pus, swelling, fevers , etc. In regard to hypertension, continue to monitor blood pressure closely and continue on lisinopril 40, metoprolol 50mg daily and spironolactone 25mg. Blood pressure remains elevated since admission despite treatment. Consider initiating Norvasc 5mg daily for additional blood pressure control. Admission labs revealed hypercholesterolemia with total cholesterol at 251 and LDL at 169. Will initiate lipitor 10mg daily and monitor closely for adverse reaction to medication. B12 also noted to be low at time of admission at 193. Will initiate replacement treatment with 100mg IM x 1 week followed by daily oral B12 supplementation. Monitor anemia periodically throughout admission and recommend rechecking B12 level in 1 month. TSH elevated upon admission at 12.08. Continue Synthroid and recommend reevaluation of TSH in 1 month. Appreciate medical consultation. The hospitalist services will continue to follow patient medically manage Mr. Segura's hospitalization on [facility] unit. At time of discharge his medical care will return to his primary care provider in [place], [place], Dr. Philipp Del Rosario. Code Status Do Not Resuscitate Hospital Course Summary Disclaimer The hospital course summary below is not to be considered part of the above Progress Note. Hospital Course Summary 06/24 Agree with admission to [facility] unit for further psychiatric evaluation and treatment. In regards to chronic keloids, recommend using aggressive lotion to help with dry skin/itching. Will order a Neosporin/bacitracin to use twice a day to open areas. Keep any open areas covered with dressing and change daily. Monitor for evidence of skin infection Monitor blood pressure and continue on lisinopril 40, metoprolol 50mg daily Encourage patient to participate in unit activity and provide a safe environment Appreciate medical consultation. The hospitalist services will continue to follow patient medically manage Mister Segura stay. During his hospitalization on [facility] unit. At time of discharge his medical care will return to his primary care provider in [place], [place], Dr. Philipp Del Rosario. 06/28/16: Rosy. Overall, Juan appears to be doing well and is medically stable. Continue psychiatric care per Dr. Villanueva and team. Continue to provide safe and supportive environment, encouraging patient participation in floor activities. In regards to chronic keloids, patient has been seen and evaluated by wound care team who recommended cortisone cream to areas while keeping open. Continue cortisone and appreciate wound care team's time and expertise.Monitor closely for evidence of skin infection including redness, pus, swelling, fevers , etc. In regard to hypertension, continue to monitor blood pressure closely and continue on lisinopril 40, metoprolol 50mg daily and spironolactone 25mg. Blood pressure remains elevated since admission despite treatment. Consider initiating Norvasc 5mg daily for additional blood pressure control. Admission labs revealed hypercholesterolemia with total cholesterol at 251 and LDL at 169. Will initiate lipitor 10mg daily and monitor closely for adverse reaction to medication. B12 also noted to be low at time of admission at 193. Will initiate replacement treatment with 100mg IM x 1 week followed by daily oral B12 supplementation. Monitor anemia periodically throughout admission and recommend rechecking B12 level in 1 month. TSH elevated upon admission at 12.08. Continue Synthroid and recommend reevaluation of TSH in 1 month. Appreciate medical consultation. The hospitalist services will continue to follow patient medically manage Mr. Segura's hospitalization on [facility]. At time of discharge his medical care will return to his primary care provider in [place], [place], Dr. Philipp Del Rosario. CHRISTINA PAGAN MD 06/28/16 0270: Assessment & Plan Assessment I have independently evaluated and examined this patient. I reviewed the chart, the patient's history, and the PA's documented findings as above. We discussed and formulated the assessment and plan as above with additions as below: Mr. Segura was seen in the day room. He reported that keloids itch but otherwise he is unsure how they are doing. He reports the sleeping well and denied dyspnea. Speech is mumbled. Patient is pleasant and cooperative. Respirations are nonlabored with good airflow. There is extensive keloid on the upper back with some superficial irritation/ abrasion present. Blood pressures have been borderline. A1c 5.4, LDL elevated at 169. Low B-12-163 , TSH modestly elevated 12.8, RPR negative. Continue hydrocortisone cream for keloid and will add Benadryl cream topically to help with pruritus. Check orthostatics before addition of another agent for blood pressure. Increase oral B-12 to 1 mg daily when started next week. DOLORES CHRISTOPHER June 28, 2016 08:48 CHRISTINA PAGAN MD June 28, 2016 21:53
[2016-06-28] MEDS: CYANOCOBALAMIN (B-12) 1000mcg/ml INJECTION IM SCH (09:00)
[2016-06-28] MEDS ORDERED: PNEUMOCOCCAL 13 VACCINE 0.5 ML SYRINGE IM ONE (09:00)
--- NOTE | 2016-06-28 09:33 | NUR ---
status pt woke this am at 0745. slept total of 9.75 hrs. pt is alert and oriented to self only. is pleasant and cooperative with cares. ate 100% of breakfast and is compliant with medication. denies any pain or discomfort.
--- NOTE | 2016-06-28 09:52 | NUR ---
SPORTS BROADCASTER--PHONE MESSAGE SW called son to discuss pt's status, however, there was no answer. SW left message for son to call back.
--- NOTE | 2016-06-28 10:30 | NUR ---
FIGURE CLERK--AM GROUP Pt. participated to the best of his abiity in psychoeducational group facilitated by [facility]. Topic was on importance of preserving family relationships and how to resolve conflicts. Pt. was semi-alert and oriented X1. He sat in recliner with his eyes closed. He often opened them to laugh or make a comment about something that was said by another group member. Thought and speech pattern are often disorganized and his speech is mumbled. Another pt. asked to listen to music as a way to close group. Pt. smiled and tapped his toes to some of the songs. He appeared relaxed and seemed to enjoy being a part of the social interaction.
[2016-06-28 16:01] VITALS: BP 149/90; PULSE 51; RESP 18; TEMP 97.6; O2SAT 99
--- NOTE | 2016-06-28 17:19 | GENPN ---
[facility] Subjective Date DATE: 06/27/16 TIME: 22:24 Subjective/Severity of Illness Medications Current Medications Medications (Trade) Dose Ordered Sig/Qing Start Time Stop Time Status Last Admin Dose Admin Miscellaneous Medication (May use PRN orders) 1 PRN PRN 06/23/16 19:45 Haloperidol (Haldol) 0.5 mg Q6H PRN 06/23/16 19:45 Lorazepam (Ativan) 0.5 mg Q6H PRN 06/23/16 19:45 Lorazepam (Ativan) 0.5 mg Q6H PRN 06/23/16 19:45 Haloperidol Lactate (Haldol 5 Mg/ml Inj) 0.5 mg Q6H PRN 06/23/16 19:45 Lorazepam (Ativan Intensol) 0.5 mg Q6H PRN 06/23/16 19:45 Haloperidol (Haldol Liquid) 0.5 mg Q6H PRN 06/23/16 19:45 Aspirin (Ecotrin) 81 mg DAILY 06/24/16 09:00 06/27/16 09:28 81 MG Levothyroxine Sodium (Synthroid) 175 mcg ACB 06/24/16 06:30 06/27/16 05:50 175 MCG Lisinopril (Prinivil) 40 mg DAILY 06/24/16 09:00 06/27/16 09:28 40 MG Memantine (Namenda) 10 mg BID 06/23/16 21:00 06/27/16 19:33 10 MG Metoprolol Succinate (TOPROL XL 50 mg) 50 mg DAILY 06/24/16 09:00 06/27/16 09:28 50 MG Omeprazole (Prilosec) 20 mg ACB 06/24/16 07:30 06/27/16 05:49 20 MG Bacitracin (Bacitracin) 1 applic BID 06/24/16 09:00 06/27/16 16:34 DC 06/27/16 09:29 1 APPLIC Spironolactone (Aldactone) 25 mg WB 06/27/16 11:45 06/27/16 11:56 25 MG Hydrocortisone (Cortizone-10 Ointment) 1 applic BID 06/27/16 21:00 06/27/16 19:34 1 APPLIC Subjective Patient seen and chart reviewed. Case discussed with treatment team. On interview, patient is pleasantly confused and answers out of context to questions. 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 Patient denies any SI, HI or AVH. Nursing staff report patient has been pleasantly confused, with no problematic behaviors. Per SW, son is coming from [place] to take custody of patient. Patient slept 8.25 hours overnight. VSS. Patient is eating well. Psychotropic PRNs required in the past 24 hours: none. Time of Service: 08:15 Start Time: 17:20 Stop Time: 17:40 Care >50% of this visit spent in counseling/coordination care. [facility] Exam Vitals Vital Signs Date Time Temp Pulse Resp B/P Pulse Ox O2 Delivery O2 Flow Rate FiO2 06/27/16 20:11 63 06/27/16 20:05 18 06/27/16 19:20 95.7 159/94 96 Room Air Physical examination performed by the hospitalist. Height (Feet): 6 Height (Inches): 4.00 Mental Status Exam Muscle Strength/Tone: Normal Dressing: Casual Grooming: Fair Attitude: Cooperative Motor Activity: Normal Eye Contact: Fair Speech: Normal Volume: Normal Rhythm: Mumbled Sensory: Alert Orientation: Disoriented to time, Disoriented to place, Disoriented to situation, Oriented to person Mood: Euthymic Affect: Congruent, Stable Rate of Thoughts: Delayed Thought Organization: Confused Associations: Illogical Abstract Reasoning: Poor abstract reasoning Thought Content: Normal (other than out of context due to dementia) Perception/Psychotic: Perception Normal Attention Span/Concentration: Short Span Language: Naming Impaired Fund of Knowledge: Poor fund of knowledge Memory: Poor-immediate, Poor-recent Suicidal Ideation: Denies Homicidal Ideation: Denies Insight: Impaired Judgment: Impaired Impulse Control: Good Assessment and Plan (1) Major neurocognitive disorder due to Alzheimer's disease, probable, with behavioral disturbance Assessment: 06/24/16 Will continue to monitor. Dementia work up and medical team to follow 06/25/16 Continue current care 06/26/16 Continue current care 06/27/16: Continue current care as patient has not exhibited any problematic behavior. Son is reportedly coming tomorrow. (2) Hypertension (3) GERD (gastroesophageal reflux disease) (4) Hypothyroidism (5) Congestive heart failure (6) Coronary artery disease Cont. current psych. meds SHASHI CORBETT MD June 27, 2016 22:24
--- NOTE | 2016-06-28 17:22 | GENPN ---
[facility] Subjective Date DATE: 06/28/16 TIME: 17:19 Subjective/Severity of Illness Medications Current Medications Medications (Trade) Dose Ordered Sig/Qing Start Time Stop Time Status Last Admin Dose Admin Miscellaneous Medication (May use PRN orders) 1 PRN PRN 06/23/16 19:45 Haloperidol (Haldol) 0.5 mg Q6H PRN 06/23/16 19:45 Lorazepam (Ativan) 0.5 mg Q6H PRN 06/23/16 19:45 Lorazepam (Ativan) 0.5 mg Q6H PRN 06/23/16 19:45 Haloperidol Lactate (Haldol 5 Mg/ml Inj) 0.5 mg Q6H PRN 06/23/16 19:45 Lorazepam (Ativan Intensol) 0.5 mg Q6H PRN 06/23/16 19:45 Haloperidol (Haldol Liquid) 0.5 mg Q6H PRN 06/23/16 19:45 Aspirin (Ecotrin) 81 mg DAILY 06/24/16 09:00 06/28/16 08:33 81 MG Levothyroxine Sodium (Synthroid) 175 mcg ACB 06/24/16 06:30 06/28/16 06:31 175 MCG Lisinopril (Prinivil) 40 mg DAILY 06/24/16 09:00 06/28/16 08:33 40 MG Memantine (Namenda) 10 mg BID 06/23/16 21:00 06/28/16 08:33 10 MG Metoprolol Succinate (TOPROL XL 50 mg) 50 mg DAILY 06/24/16 09:00 06/28/16 08:33 50 MG Omeprazole (Prilosec) 20 mg ACB 06/24/16 07:30 06/28/16 06:31 20 MG Bacitracin (Bacitracin) 1 applic BID 06/24/16 09:00 06/27/16 16:34 DC 06/27/16 09:29 1 APPLIC Spironolactone (Aldactone) 25 mg WB 06/27/16 11:45 06/28/16 08:33 25 MG Hydrocortisone (Cortizone-10 Ointment) 1 applic BID 06/27/16 21:00 06/28/16 08:41 1 APPLIC Atorvastatin Calcium (LIPITOR 10 mg) 10 mg HS 06/28/16 21:00 Cyanocobalamin (Vit. B-12) 1,000 mcg DAILY 06/28/16 09:00 07/04/16 09:01 Cyanocobalamin (Vitamin B-12) 100 mcg DAILY 07/05/16 09:00 Subjective Patient seen and chart reviewed. Case discussed with treatment team. On interview, patient is pleasantly confused and answers out of context to questions. He reports his mood is "good" and talks about his son coming today though he says "kids have their own ideas." Patient denies any SI, HI or AVH. Nursing staff report patient has been pleasantly confused, with no problematic behaviors. Per , son is coming from [place] to take custody of patient but has not been able to be contacted by phone today. Patient slept 9.75 hours overnight. VSS. Patient is eating well. Psychotropic PRNs required in the past 24 hours: none. Time of Service: 08:15 Start Time: 15:20 Stop Time: 15:40 Care >50% of this visit spent in counseling/coordination care. [facility] Exam Vitals Vital Signs Date Time Temp Pulse Resp B/P Pulse Ox O2 Delivery O2 Flow Rate FiO2 06/28/16 16:01 97.6 51 18 149/90 99 Room Air Physical examination performed by the hospitalist. Height (Feet): 6 Height (Inches): 4.00 Mental Status Exam Muscle Strength/Tone: Normal Dressing: Casual Grooming: Fair Attitude: Cooperative Motor Activity: Normal Eye Contact: Fair Speech: Normal Volume: Normal Rhythm: Mumbled Sensory: Alert Orientation: Disoriented to time, Disoriented to place, Disoriented to situation, Oriented to person Mood: Euthymic Affect: Congruent, Stable Rate of Thoughts: Delayed Thought Organization: Confused Associations: Illogical Abstract Reasoning: Impaired, concrete Thought Content: Normal (other than out of context due to dementia) Perception/Psychotic: Perception Normal Attention Span/Concentration: Short Span Language: Naming Impaired Fund of Knowledge: Poor fund of knowledge Memory: Poor-recent Suicidal Ideation: Denies Homicidal Ideation: Denies Insight: Impaired Judgment: Impaired Impulse Control: Good Assessment and Plan (1) Major neurocognitive disorder due to Alzheimer's disease, probable, with behavioral disturbance Assessment: 06/24/16 Will continue to monitor. Dementia work up and medical team to follow 5/20/17 Continue current care 06/26/16 Continue current care 06/27/16: Continue current care as patient has not exhibited any problematic behavior. Son is reportedly coming tomorrow. 06/28/16: Continue current care; have not been able to reach son today. (2) Hypertension (3) GERD (gastroesophageal reflux disease) (4) Hypothyroidism (5) Congestive heart failure (6) Coronary artery disease Cont. current psych. meds SHASHI CORBETT MD June 28, 2016 17:22
--- NOTE | 2016-06-28 18:09 | NUR ---
summary pt has been pleasant and cooperative with cares. pt ate 100% at breakfast and 75% for lunch and supper. pt was compliant with oral medications this am. pt refused to let this nurse give him the IM vit-b12 and the pneumonia vaccine. pt slept for a total of 30 min this shift. interacts with staff appropriately. pt has shown no restlessness or wondering behavior.
[2016-06-28 19:12] VITALS: BP 151/81; PULSE 56; RESP 12; TEMP 98.6; O2SAT 98
[2016-06-28] MEDS: ATORVASTATIN 10 MG TABLET PO SCH (19:32)
[2016-06-28 20:40] VITALS: RESP 16
[2016-06-28] MEDS: DiphenhydrAMINE 25 MG CAPSULE PO PRN (21:59)
[2016-06-29] VITALS (10 sets, daily range): BP systolic 147–220; BP diastolic 72–112; PULSE 45–103; RESP 16–18; TEMP 97.8; O2SAT 95–100
--- NOTE | 2016-06-29 00:23 | NUR ---
Bed time Pt went to bed at 2215 and was asleep at 2300. Sleep during day reported at .75 hours. Currently sleeping. Will continue to monitor
--- NOTE | 2016-06-29 00:23 | NUR ---
Chart Check 24 hour chart check completed
--- NOTE | 2016-06-29 01:28 | NUR ---
Mid shift status Pt was sitting in day room at beginning of shift. Pt is pleasant and cooperative with assessment. Alert to person. Up SBA x 1. Slight unsteady gait. Pt compliant with HS meds. Denies pain. Denies SOA. When asked if pt was ready for bed, pt became slightly agitated and started talking about "You ain't gonna give me no damn shot, I ain't playing your games!". He was speaking with a lot of word salad, making it difficult to understand his sentences. But pt was fixated about receiving shots. In report it was stated that attempts were made to administer Vit B12 injection along with a Pneumonia vaccine. Pt refused both. He continued to curse about it so staff made attempts to change the subject. Attempt was successful for short time and he was again cursing about getting a shot. He then made a comment "if you going to do it then just do it!". Asked pt what he meant by that and he said I was going to give him a shot. I assured pt I was not going to give him a shot and pt asked "you're not giving me a shot?". Pt finally calmed after a bit. Pt did not become verbally or physically aggressive. He only seemed agitated about the shots. Once staff got pt up to take him to his room, pt began complaining how much his back was itching. I applied cortisone cream as scheduled to his back. Pt stated "you got to rub that in hard girl, I am itching like crazy!". I then made call to telehospitalist at [phone] to see about an order for something for itching. Order given for Benadryl 25 mg PO Q6H PRN. Took the Benadryl to pt at 2158 and explained it is for his itching. Pt looked at pill and said "just one?". Assured pt that is all he needs. He then hollered out "Ruth! I sure hope this works". Pt was happy to receive something to help with his itching. Pt is continent. Makes needs known. Has been sleeping since 2300 and up to use BR once. No behaviors noted. No behavioral PRNs given. Pt speech is mumbled but he speaks loudly when talking. Currently sleeping. Bed rails up x 2 and alarm on. Will continue to monitor
[2016-06-29] MEDS: DiphenhydrAMINE 25 MG CAPSULE PO PRN (04:39)
[2016-06-29] MEDS: OMEPRAZOLE 20 MG CAPSULE PO SCH (05:31)
[2016-06-29] MEDS: LEVOTHYROXINE 175 MCG TABLET PO SCH (05:31)
--- NOTE | 2016-06-29 06:18 | NUR ---
Summary Pt has been sleeping since 2299. Up twice to use BR. Alert to person. Up SBA x 1. Pt has complained of severe itching on his back this shift. Benadryl 25 mg given PRN at 2158 and again at 444 for pruritus. Pt compliant with all meds. Pt has not mentioned any more about receiving a shot. His focus is on the itching. Pt is continent. Makes needs known. Has not displayed any verbal or physical aggression this shift. Cooperative with cares. No agitation or behaviors noted. No behavioral PRNs given. Currently sleeping. Bed rails up x 2 and alarm on. Will continue to monitor
[2016-06-29] MEDS: ASPIRIN *EC* 81mg TABLET PO SCH (09:58)
[2016-06-29] MEDS: HYDROCORTISONE 1% OINT 28 GM TOP SCH ×2 (09:58→20:54)
[2016-06-29] MEDS: SPIRONOLACTONE 25 MG TABLET PO SCH (09:58)
[2016-06-29] MEDS: METOPROLOL XL 50 MG TABLET PO SCH (09:58)
[2016-06-29] MEDS: LISINOPRIL 40 MG TABLET PO SCH (09:58)
[2016-06-29] MEDS: MEMANTINE 10 MG TABLET PO SCH ×2 (09:58→19:29)
--- NOTE | 2016-06-29 10:47 | NUR ---
[facility]--AM GROUP Pt. participated in psychoeducational group facilitated by [facility] to this best of his ability. Pt. is only Ox1 and demonstrates a pleasant mood. Topic was on health conditions that are screened for when patients are admitted to this unit. Talked about symptoms and side effects of UTIs, low or high sodium, potassium, and low Vit. B levels. Stressed importance of medication compliance to help treat those symptoms. Patients and staff discussed importance of healthy diet and good hydration. Finished up group by listening to variety of music genres. Pt. would occasionally make a comment which indicated he was listening. He stayed engaged and relaxed for entire group.
[2016-06-29] MEDS: CYANOCOBALAMIN (B-12) 1000mcg/ml INJECTION IM SCH (11:57)
[2016-06-29] MEDS: DiphenhydrAMINE 2% CREAM 28.3 GM TOP SCH ×3 (11:57→20:54)
--- NOTE | 2016-06-29 15:00 | NUR ---
status pt alert and oriented to self. very pleasant and cooperative with am cares and is compliant with am medication. pt even allowed for the B-12 injection this am. pt ate 100% of both meals, has no complaints of pain or discomfort. does complain of itching. Benadryl cream applied as ordered.
[2016-06-29] MEDS ORDERED: CYAN500T2 PO (16:30)
[2016-06-29] MEDS ORDERED: AMLO2.5T2 PO (16:30)
[2016-06-29] MEDS ORDERED: METO-275 PO (16:30)
--- NOTE | 2016-06-29 18:43 | NUR ---
summary pt has been pleasant and cooperative all shift. is compliant with all medications. eats well for all meals. no restlessness or pacing this shift.
[2016-06-29] MEDS: ATORVASTATIN 10 MG TABLET PO SCH (19:30)
[2016-06-29] MEDS ORDERED: AMLODIPINE 5 MG TABLET PO PRN (20:00)
--- NOTE | 2016-06-29 20:23 | NUR ---
Blood pressure BP 196/97; tele-hospitalist was notified by transmitter engineer in charge; order received; Amlodipine 5mg po given now. Addendum: 06/29/16 at 2129 by MIGUEL ANGEL TRAMMELL RN BP 180/112 at 1924; rechecked after 1 min BP 220/112; recheck after 2 min BP 203/100; HR 54-57 consistent. After cuff size changed to bigger size rechecked BP 196/97 as noted.
--- NOTE | 2016-06-29 20:59 | GENPN ---
[facility] Subjective Date DATE: 06/29/16 TIME: 14:38 Subjective/Severity of Illness Medications Current Medications Medications (Trade) Dose Ordered Sig/Qing Start Time Stop Time Status Last Admin Dose Admin Miscellaneous Medication (May use PRN orders) 1 PRN PRN 06/23/16 19:45 Haloperidol (Haldol) 0.5 mg Q6H PRN 06/23/16 19:45 Lorazepam (Ativan) 0.5 mg Q6H PRN 06/23/16 19:45 Lorazepam (Ativan) 0.5 mg Q6H PRN 06/23/16 19:45 Haloperidol Lactate (Haldol 5 Mg/ml Inj) 0.5 mg Q6H PRN 06/23/16 19:45 Lorazepam (Ativan Intensol) 0.5 mg Q6H PRN 06/23/16 19:45 Haloperidol (Haldol Liquid) 0.5 mg Q6H PRN 06/23/16 19:45 Aspirin (Ecotrin) 81 mg DAILY 06/24/16 09:00 06/29/16 09:58 81 MG Levothyroxine Sodium (Synthroid) 175 mcg ACB 06/24/16 06:30 06/29/16 05:31 175 MCG Lisinopril (Prinivil) 40 mg DAILY 06/24/16 09:00 06/29/16 09:58 40 MG Memantine (Namenda) 10 mg BID 06/23/16 21:00 06/29/16 09:58 10 MG Metoprolol Succinate (TOPROL XL 50 mg) 50 mg DAILY 06/24/16 09:00 06/29/16 09:58 50 MG Omeprazole (Prilosec) 20 mg ACB 06/24/16 07:30 06/29/16 05:31 20 MG Bacitracin (Bacitracin) 1 applic BID 06/24/16 09:00 06/27/16 16:34 DC 06/27/16 09:29 1 APPLIC Spironolactone (Aldactone) 25 mg WB 06/27/16 11:45 06/29/16 09:58 25 MG Hydrocortisone (Cortizone-10 Ointment) 1 applic BID 06/27/16 21:00 06/29/16 09:58 1 APPLIC Atorvastatin Calcium (LIPITOR 10 mg) 10 mg HS 06/28/16 21:00 06/28/16 19:32 10 MG Cyanocobalamin (Vit. B-12) 1,000 mcg DAILY 06/28/16 09:00 07/04/16 09:01 06/29/16 11:57 1,000 MCG Cyanocobalamin (Vitamin B-12) 100 mcg DAILY 07/05/16 09:00 07/05/16 09:00 DC Diphenhydramine HCl (Benadryl) 25 mg Q6HR PRN 06/28/16 21:30 06/29/16 04:39 25 MG Cyanocobalamin (Vit. B-12) 1,000 mcg DAILY 07/05/16 09:00 Zinc Acetate/ Diphenhydramine (Benadryl Extra Strength) 1 applic TID 06/29/16 09:00 06/29/16 11:57 1 APPLIC Subjective Patient seen and chart reviewed. Case discussed with treatment team. On interview, patient is pleasantly confused and answers out of context to questions. He reports his mood is "good" and talks about his son coming though he is not fully aware of situation. Patient denies any SI, HI or AVH. Nursing staff report patient has been pleasantly confused most of the time, though he did have an episode of agitation about getting a shot earlier in the day and cussed at staff. He was allowed to calm and no PRNs were given. Son has been contacted and states he would like to take his father home tomorrow morning. He requests a PRN if necessary. Will give patient one time dose of Ativan 0.5mg PO q HS tonight to ensure no paradoxical reaction. Patient slept well overnight with a 30 minute nap. VSS. Patient is eating well. Psychotropic PRNs required in the past 24 hours: none. Time of Service: 08:15 Start Time: 14:00 Stop Time: 14:20 Care >50% of this visit spent in counseling/coordination care. [facility] Exam Vitals Vital Signs Date Time Temp Pulse Resp B/P Pulse Ox O2 Delivery O2 Flow Rate FiO2 06/29/16 09:13 97.8 63 18 147/89 100 Room Air Physical examination performed by the hospitalist. Height (Feet): 6 Height (Inches): 4.00 Mental Status Exam Muscle Strength/Tone: Normal Dressing: Casual Grooming: Fair Attitude: Cooperative Motor Activity: Normal Eye Contact: Fair Speech: Normal Volume: Normal Rhythm: Appropriate Rhythm Sensory: Alert Orientation: Disoriented to time, Disoriented to place, Disoriented to situation, Oriented to person Mood: Euthymic Affect: Congruent, Stable Rate of Thoughts: Delayed Thought Organization: Confused Associations: Illogical (due to dementia) Abstract Reasoning: Poor abstract reasoning Thought Content: Normal Perception/Psychotic: Perception Normal Attention Span/Concentration: Short Span Language: Naming Impaired Fund of Knowledge: Poor fund of knowledge Memory: Poor-immediate, Poor-recent Suicidal Ideation: Denies Homicidal Ideation: Denies Insight: Impaired Judgment: Impaired Impulse Control: Fair Assessment and Plan (1) Major neurocognitive disorder due to Alzheimer's disease, probable, with behavioral disturbance Assessment: 06/24/16 Will continue to monitor. Dementia work up and medical team to follow 06/25/16 Continue current care 06/26/16 Continue current care 06/27/16: Continue current care as patient has not exhibited any problematic behavior. Son is reportedly coming tomorrow. 06/28/16: Continue current care; have not been able to reach son today. 06/29/16: Give one-time dose of Ativan 0.5mg po at bedtime to ensure no paradoxical reaction in case PRN medicine is necessary at time of discharge. Plan to discharge home with son who agrees to provide 29/08 supervision for safety and ensure outpatient f/u in [place]. (2) Hypertension (3) GERD (gastroesophageal reflux disease) (4) Hypothyroidism (5) Congestive heart failure (6) Coronary artery disease Cont. current psych. meds, Anticipate discharge soon SHASHI CORBETT MD June 29, 2016 14:38
[2016-06-29] MEDS ORDERED: LORAZEPAM 0.5 MG TABLET PO ONE (21:00)
--- NOTE | 2016-06-29 21:00 | NUR ---
BP re-eval BP rechecked now after Amlodipine given earlier; 175/76.
--- NOTE | 2016-06-29 21:05 | DSPDOC ---
General Date Date DATE: 06/29/16 TIME: 21:00 Attending Physician Tony Emerson MD Admitting Physician Tony Emerson MD Consulting Physician Jesus Manuel Webb MD Admitting Diagnosis unspecified neurocognitive d/o with behavioral disturbance Discharge Diagnosis Major neurocognitive disorder, Alzheimer's disease probable History of Present Illness Per admitting psychiatrist Dr. Emerson: 76 y/o AA male with a hx of dementia sent from [place] for increasing confusion. Pt was found by police wandering in the neighbor and was not able to tell them where he lives. On face to face the pt is pleasant and cooperative but confused. He is only oriented to self and is not able to tell a good hx. He talks about the gas line in the building and it needing to be fixed. He denies any pain and states his mood is stable. Denies any S/i or psychosis. PSYCH ROS: Pt is very confused and so psychiatric symptoms are hard to obtain. He scored a 3 on his SLUMS. He does not appear to be in any distress. PAST PSYCH: Pt is on Namenda. No other psych hx is available at this time. Per hospitalist managing medical comorbidities: Patient is a 76-year-old male with a known history of dementia. He currently resides in [place], [place]. He was seen by neighbors wandering the neighborhood due to the concern for safety. The Police Department were contacted. He was unable to explain to law enforcement where he resides. Patient was then taken to [facility] emergency room for further evaluation. He was medically evaluated and cleared, however, it was recommended that patient have inpatient psychiatric evaluation and treatment. He was then accepted to the generations unit at [facility] for further evaluation and treatment. Heather was seen this morning upon waking. He is sitting on the edge of the bed, alert and pleasant. He states this is a "nice facility". He denies having any pain or feeling short of breath. He does have significant large keloids to his shoulders and back. He complains of chronic itching and dry skin to these areas. It is noted to have several areas on the keloid base that are open. Hospital Course The patient was admitted to [facility] and placed on safety and elopement precautions. Based on the diagnostic interview and collateral information provided by patient's son, it was established that the patient suffers from major neurocognitive disorder, Alzheimer's disease probable. See notable medication changes below. Prior to all medication trials, the side effects, risk and benefits of all medications were discussed with the patient and/or medical DPOA (or guardian). The patient tolerated medications well and without any side effects. By the time of discharge, the patient participated in unit activities to the best of his/her ability and didnt have self-harming behavior or aggressive outbursts. The patients vital signs remained within normal limits and stable. Throughout the hospitalization, problematic symptoms leading to admission improved to the point that continued outpatient psychiatric treatment was believed to be an appropriate level of care. The patients son was contacted prior to dismissal home. He agreed to help coordinate the patient s outpatient care and supervise for safety at all times. He planned to take him back to [place] with him to care for him there. It was recommended that the patient not have any access to medications (prescription or [id number]) or weapons after discharge. 06/24/16 Will continue to monitor. Dementia work up and medical team to follow 06/25/16 Continue current care 06/26/16 Continue current care 06/27/16: Continue current care as patient has not exhibited any problematic behavior. Son is reportedly coming tomorrow. 06/28/16: Continue current care; have not been able to reach son today. 06/29/16: Will give one time dose of Ativan 0.5mg po q HS tonight to ensure no paradoxical reaction if PRN is needed at time of discharge. Plan for discharge in AM on 06/30/16 per son's request, plans to supervise for safety 29/08 and take him back to [place]. Per hospitalist managing medical comorbidities: 06/24 Agree with admission to generations unit for further psychiatric evaluation and treatment. In regards to chronic keloids, recommend using aggressive lotion to help with dry skin/itching. Will order a Neosporin/bacitracin to use twice a day to open areas. Keep any open areas covered with dressing and change daily. Monitor for evidence of skin infection Monitor blood pressure and continue on lisinopril 40, metoprolol 50mg daily Encourage patient to participate in unit activity and provide a safe environment Appreciate medical consultation. The hospitalist services will continue to follow patient medically manage Mister Colton duncan. During his hospitalization on generations unit. At time of discharge his medical care will return to his primary care provider in [place], [place], Dr. Philipp Del Rosario. 06/28/16: [place]. Overall, Juan appears to be doing well and is medically stable. Continue psychiatric care per Dr. Corbett and team. Continue to provide safe and supportive environment, encouraging patient participation in floor activities. In regards to chronic keloids, patient has been seen and evaluated by wound care team who recommended cortisone cream to areas while keeping open. Continue cortisone and appreciate wound care team's time and expertise.Monitor closely for evidence of skin infection including redness, pus, swelling, fevers , etc. In regard to hypertension, continue to monitor blood pressure closely and continue on lisinopril 40, metoprolol 50mg daily and spironolactone 25mg. Blood pressure remains elevated since admission despite treatment. Consider initiating Norvasc 5mg daily for additional blood pressure control. Admission labs revealed hypercholesterolemia with total cholesterol at 251 and LDL at 169. Will initiate lipitor 10mg daily and monitor closely for adverse reaction to medication. B12 also noted to be low at time of admission at 193. Will initiate replacement treatment with 100mg IM x 1 week followed by daily oral B12 supplementation. Monitor anemia periodically throughout admission and recommend rechecking B12 level in 1 month. TSH elevated upon admission at 12.08. Continue Synthroid and recommend reevaluation of TSH in 1 month. Appreciate medical consultation. The hospitalist services will continue to follow patient medically manage Mr. Segura's hospitalization on generations unit. At time of discharge his medical care will return to his primary care provider in [place], [place], Dr. Philipp Del Rosario. Problems: Code Status Do Not Resuscitate Home Meds Active Scripts Amlodipine Besylate (Norvasc) 2.5 Mg Tablet, 2.5 MG PO DAILY for 30 Days, #30 TAB Prov:NOEMI COON APRN 06/29/16 Metoprolol Succinate (Metoprolol Succinate) 25 Mg Tab.er.24h, 25 MG PO DAILY for 30 Days, #30 TAB Prov:NOEMI COON APRN 06/29/16 Cyanocobalamin (Vitamin B-12) (Vitamin B-12) 500 Mcg Tablet, 1000 MCG PO DAILY for 30 Days, #60 TAB Prov:NOEMI COON APRN 06/29/16 Reported Medications Levothyroxine Sodium (Synthroid) 175 Mcg Tablet, 175 MCG PO ACB, TAB BEST IF TAKEN BEFORE BREAKFAST 06/23/16 Spironolactone (Spironolactone) 25 Mg Tablet, 25 MG PO DAILY Y for HYPERTENSION , TAB 06/23/16 Omeprazole Magnesium (Prilosec Otc) 20 Mg Tablet.dr, 20 MG PO DAILY, TAB 06/23/16 Memantine HCl (Namenda) 10 Mg Tablet, 10 MG PO BID, TAB Take 1 tablet,by mouth, 2 times a day. 06/23/16 Metoprolol Succinate (Metoprolol Succinate) 50 Mg Tab.er.24h, 50 MG PO DAILY, TAB 06/23/16 Lisinopril (Lisinopril) 40 Mg Tablet, 40 MG PO DAILY for HYPERTENSION, TAB 06/23/16 Aspirin *EC* (Aspirin EC) 81 Mg Tablet.dr, 81 MG PO DAILY, TAB DO NOT CHEW, CRUSH OR BREAK TABLET 06/23/16 Face to Face Encounter I met with patient on the day of dismissal and discussed follow up appointments , medications, and safety plan. Discharge Disposition Discharge home with son to f/u with provider in [place] per son's wishes. Education provided re: symptoms and expected course of dementia; safety recommendations and need for 24/7 supervision for safety discussed. SHASHI CORBETT MD June 29, 2016 21:04
--- NOTE | 2016-06-29 21:05 | NUR ---
Ativan Ativan 0.5mg po given now per Dr. Villanueva order.
--- NOTE | 2016-06-29 21:30 | NUR ---
Sleep Pt. sleeping now.
--- NOTE | 2016-06-29 21:43 | NUR ---
Chart Check 24 hour chart check completed
[2016-06-30 00:22] VITALS: BP 177/85; PULSE 46; O2SAT 98
--- NOTE | 2016-06-30 05:36 | NUR ---
Sleep Pt. slept well overnight. Got out of bed for the bathroom twice. Stand-by assist. No agitation or aggression noted; pt. calm, and pleasant.
[2016-06-30] MEDS: OMEPRAZOLE 20 MG CAPSULE PO SCH (06:00)
[2016-06-30] MEDS: LEVOTHYROXINE 175 MCG TABLET PO SCH (06:00)
[2016-06-30] MEDS: DiphenhydrAMINE 2% CREAM 28.3 GM TOP SCH (07:16)
[2016-06-30] MEDS: HYDROCORTISONE 1% OINT 28 GM TOP SCH (07:16)
[2016-06-30 07:33] LABS: BASOPHILS # (AUTO) 0.1 T/MM3 (0-0.2); BASOPHILS % (AUTO) 1.1 % (0-2); EOSINOPHILS # (AUTO) 0.2 T/MM3 (0-0.5); EOSINOPHILS % (AUTO) 2.5 % (0-4); HCT - HEMATOCRIT 41.4 % (41-53); HGB - HEMOGLOBIN 13.6 GM/DL (13.5-17.5); IMMATURE GRANULOCYTE # (AUTO) 0.02 T/MM3 (0.00-0.03); IMMATURE GRANULOCYTE % (AUTO) 0.3 % (0.0-0.5); LYMPHOCYTES # (AUTO) 2.1 T/MM3 (1-4.8); LYMPHOCYTES % (AUTO) 32.3 % (23-45); MEAN CORPUSCULAR HGB 28.6 UUG (26-34); MEAN CORPUSCULAR HGB CONC(MCHC 32.9 GM/DL (31-37); MEAN CORPUSCULAR VOLUME 87.2 UM3 (80-100); MEAN PLATELET VOLUME 10.4 UM3 (9.4-12.4); MONOCYTES # (AUTO) 0.6 T/MM3 (0-0.8); MONOCYTES % (AUTO) 9.9 % (0-9.0); NEUTROPHILS #(AUTO)-ABSOLUTE 3.4 T/MM3 (1.8-7.7); NEUTROPHILS % (AUTO) 53.9 % (33-66); RED BLOOD COUNT 4.75 M/MM3 (4.50-5.90); WBC - WHITE BLOOD COUNT 6.3 T/MM3 (4.5-11.0)
[2016-06-30 07:39] LABS: ANION GAP 12 MEQ/L (5-15); BUN/CREATININE RATIO 17 RATIO (6-26); CALCIUM 9.2 MG/DL (8.4-10.2); CHLORIDE 106 MEQ/L (98-107); CO2 - CARBON DIOXIDE 24 MEQ/L (22-30); CREATININE 0.9 MG/DL (0.8-1.5); GLOMERULAR FILTRATION RATE 82; GLUCOSE 88 MG/DL (75-110); POTASSIUM 4.1 MEQ/L (3.6-5); SODIUM 142 MEQ/L (134-144)
[2016-06-30 08:01] VITALS: BP 133/92; PULSE 55; RESP 18; TEMP 96.8; O2SAT 96
[2016-06-30] MEDS: METOPROLOL XL 50 MG TABLET PO SCH (08:01)
[2016-06-30] MEDS: LISINOPRIL 40 MG TABLET PO SCH (08:01)
[2016-06-30] MEDS: SPIRONOLACTONE 25 MG TABLET PO SCH (08:01)
[2016-06-30] MEDS: CYANOCOBALAMIN (B-12) 1000mcg/ml INJECTION IM SCH (08:01)
[2016-06-30] MEDS: MEMANTINE 10 MG TABLET PO SCH (08:02)
[2016-06-30] MEDS: ASPIRIN *EC* 81mg TABLET PO SCH (08:02)
[2016-06-30 08:18] VITALS: PULSE 55; RESP 18
--- NOTE | 2016-06-30 08:53 | NUR ---
PRN patient got Ativan 0.5 mg po PRN at 0854 to prevent discharge agitation and anxiety, also to help with travel anxiety.
[2016-06-30] MEDS ORDERED: HYDR453.2 TOP (09:25)
--- NOTE | 2016-06-30 10:20 | NUR ---
BRIANA CM VISITED WITH PT JINA ENRIQUEZ ON THE UNIT. PT WILL RETURN HOME WITH SON TODAY. ZOE AWARE TO CONTACT CM/GENERATIONS UNIT IF NEEDS ARISE.
--- NOTE | 2016-06-30 10:30 | NUR ---
PRN FOLLOW UP PATIENT WAS PLEASANT, HAPPY MOOD, COOPERATIVE, NO ANXIETY NOTED. PRN MEDICATION WAS EFFECTIVE
--- NOTE | 2016-06-30 11:09 | NUR ---
PRN FOLLOW UP patient was discharged today at 10:40am to home with his son from [place]. Son was here to pick him up along with his daughter. Discharge package was given to his son Juventino mendosa. Discharge instructions were given to his son juventino mendosa. All belonging were given to his son. Patient was pleasant during discharge, he was cooperative and smiling, happy to see his son. Patient was in a stable condition. Patient was escorted to [facility] main entrance via wheel chair by this RN. Report given to "__Juventino Mendosa__at 10:40____"; unit contact information given along with plans for follow-up care with PCP and MH professional as outlined in P[facility]. No pending labs on discharge. Addendum: 06/30/16 at 1114 by JOSE ALVAREZ RN THIS IS DISCHARGE NOTE NOT PRN FOLLOW UP
--- NOTE | 2016-06-30 11:23 | NUR ---
DISCHARGE NOTE patient was discharged today at 10:40am to home with his son from [place]. Son was here to pick him up along with his daughter. Discharge package was given to his son Juventino mendosa. Discharge instructions, medication education and instructions, follow up appointments, and patient care education was given to his son Juventino Mendosa . All belonging were given to his son. Patient was pleasant during discharge, he was cooperative and smiling, happy to see his son. Patient was in a stable condition. He was clean and dress appropriate for season. Patient was escorted to [facility] main entrance via wheel chair by this RN. Report given to "__Juventino Mendosa__at 10:40____"; unit contact information given along with plans for follow-up care with PCP and MH professional as outlined in PHS. No pending labs on discharge.
--- NOTE | 2016-07-01 15:00 | NUR ---
CM CM LVM FOR PT JINA ENRIQUEZ
[2016-07-05] MEDS ORDERED: CYANOCOBALAMIN (B-12) 100mcg TABLET PO SCH (09:00)
[2016-07-05] MEDS ORDERED: CYANOCOBALAMIN (B-12) 500mcg TABLET PO SCH (09:00)
== END 2016-06-30 11:33 | disposition home or self-care (01) | DRG 57 ==
LOC: GEN 19:10
PROVIDERS: ADMIT Psychiatry & Neurology Psychiatry; ATTEND Psychiatry & Neurology Psychiatry
DX: G30.9 Alzheimer's disease, unspecified (principal); F02.81 Dementia in other diseases classified elsewhere, unspecified severity, with behavioral disturbance; Z91.83 Wandering in diseases classified elsewhere; I10 Essential (primary) hypertension; I50.9 Heart failure, unspecified; I25.10 Atherosclerotic heart disease of native coronary artery without angina pectoris; K21.9 Gastro-esophageal reflux disease without esophagitis; E03.9 Hypothyroidism, unspecified; L91.0 Hypertrophic scar; Z79.82 Long term (current) use of aspirin; Z87.891 Personal history of nicotine dependence
CPT/HCPCS: 36415; 80048; 80061; 82607; 82746; 83036; 84134; 84443; 85025; 86592; 93005